=== PATIENT | female | born 1955 | race Caucasian/White ===

== ENCOUNTER → 2022-07-25 08:29 | Outpatient (BNVA) | payer BC, SELFPAY | PROVIDERS: Family Provider Family Medicine; PCP Family Medicine; Visit Provider Family Medicine | DX: Z00.00 Encounter for general adult medical examination without abnormal findings (principal) | CPT/HCPCS: 80053; 80061; 83036 ==

== ENCOUNTER 2023-02-23 21:08 | Emergency (ER) | payer BC, SELFPAY ==
[2023-02-23 21:43] VITALS: BP 115/75; PULSE 79; RESP 14; TEMP 37.6; O2SAT 96; BMI 24.2
--- NOTE | 2023-02-24 00:21 | XRR_ITS ---
PROCEDURE INFORMATION: Exam: XR Chest Exam date and time: 02/24/2023 12:36 AM Age: 67 years old Clinical indication: Patient HX: Fever. TECHNIQUE: Imaging protocol: Radiologic exam of the chest. Views: 1 view. COMPARISON: No relevant prior studies available. FINDINGS: Lungs: Unremarkable. No consolidation. Pleural spaces: Unremarkable. No pleural effusion. No pneumothorax. Heart/Mediastinum: Unremarkable. No cardiomegaly. Bones/joints: Unremarkable. XR/XR chest 1V portable [id number] IMPRESSION: No acute findings.
[2023-02-24] MEDS: ketorolac 30 mg/mL INJ 15 MG IVP (00:53)
[2023-02-24 00:54] LABS: Hematocrit 36.4 % (37.0-47.0); Hemoglobin 11.9 g/dL (11.5-15.3); Mean Corpuscular HGB Conc 32.7 g/dL (30.0-36.0); Mean Corpuscular Hemoglobin 30.1 pg (28.0-34.0); Mean Corpuscular Volume 91.9 fl (81-99); Mean Platelet Volume 11.4 fL (7.4-10.4); Platelet Count 81 10^3/cmm (130-400); Red Blood Count 3.96 10^6/uL (4.1-5.3); Red Cell Distribution Width 12.9 % (12.1-15.1); White Blood Count 1.3 10^3/uL (4.0-10.0)
[2023-02-24] MEDS: sodium chloride 0.9% 1,000 ML 999 ML IV (00:54)
[2023-02-24 01:08] VITALS: BP 114/63; RESP 16; O2SAT 97
[2023-02-24 01:12] LABS: Alanine Aminotransferase 18 U/L (0-33); Albumin Level 4.1 g/dL (3.5-5.2); Alkaline Phosphatase 35 U/L (35-105); Anion Gap 15.5 (5-19); Aspartate Amino Transferase 40 U/L (0-32); Blood Urea Nitrogen 15 mg/dL (8-23); Calcium 8.2 mg/dL (8.5-10.5); Carbon Dioxide 22 mmol/L (22-29); Chloride 96 mmol/L (98-107); Creatine Phosphokinase 234 U/L (26-192); Globulin 2.3 g/dL (1.3-4.6); Glomerular Filtration Rate 71.3 mL/min (90-130); Glucose 85 mg/dL (65-115); Osmolality Calculated 270 mOsm/kg (285-295); Potassium 3.5 mmol/L (3.5-5.1); Sodium 130 mmol/L (136-145); Total Bilirubin 0.2 mg/dL (0.15-1.2); Total Protein 6.4 g/dL (6.6-8.7)
--- NOTE | 2023-02-24 01:14 | ED_ITS ---
HPI - Fever General: Chief Complaint: Fever Stated Complaint: Joint Hurt\Fever\N\ Time Seen by Provider: 02/24/23 00:10 History of Present Illness: 67-year-old female who was diagnosed in the clinic a couple of days ago with likely tickborne illness empirically. She has had fevers, joint pains, body aches, and generalized malaise. She did have a history of tick bites previously. She has been on doxycycline for 3 days, and is still running fevers. She has similar symptoms. No vomiting. No cough. MD elicited complaint: fever, malaise and weakness (Generalized) Context: other Associated symptoms: Reports chills and headache(s); Deny abdominal pain, flank pain, chest pain, confusion, cough, diarrhea, dysuria, rhinorrhea or vomiting Review of Systems Const: Reports: fever(s), chills, body aches and malaise ENMT: Denies: throat pain Card: Denies: chest pain Resp: Denies: dyspnea, productive cough or non-productive cough GI: Denies: abdominal pain, vomiting or diarrhea : Denies: flank pain or dysuria Neuro: Reports: headache(s); Denies: confusion Physical Exam Const: COMMON NORMALS: no acute distress GENERAL APPEARANCE: cooperative; not ill appearing and not frail appearing HENMT: COMMON NORMALS: normocephalic, atraumatic and Normal external nose present HEAD & SCALP: normocephalic and atraumatic FACE & SINUS: normal facial exam and face symmetric NOSE: Normal external nose present Eye: COMMON NORMALS: Equal, round and reactive pupils present and EOMs intact bilaterally PUPIL: Yes Equal, round and reactive pupils present Neck/C-Spine: GENERAL: Yes trachea midline Chest: CHEST: Yes Symmetrical chest wall rise Resp: COMMON NORMALS: normal respiratory effort, No retractions, No use of accessory muscles and clear to auscultation bilaterally AUSCULTATION: clear to auscultation bilaterally Cardio: COMMON NORMALS: regular rate and regular rhythm RATE: regular rate RHYTHM: regular rhythm GI: COMMON NORMALS: Normal to inspection, nondistended, normoactive bowel sounds present Extremity: COMMON NORMALS: no pedal edema Neuro: ANT COMA SCALE: document GCS findings [place] coma scale eye opening: Spontaneous [place] coma scale verbal response: Orientated [place] coma scale motor response: Obey commands Ant coma scale total score: 15 SENSORY EXAM: Yes extremities (intact) Psych: COMMON NORMALS: speech normal SPEECH: Yes normal speech Skin: COMMON NORMALS: no rashes or lesions noted GENERAL SKIN EXAM: no rash es or lesions noted Course Vital Signs: Vital signs: Vital Signs Temperature 99.7 F H 02/24/23 03:19 Pulse Rate 67 02/24/23 03:19 Respiratory Rate 16 02/24/23 03:19 Blood Pressure 90/54 02/24/23 03:19 Pulse Oximetry 96 02/24/23 03:19 Oxygen Delivery Me thod Room Air 02/23/23 21:43 MDM - Fever Medical Decision Making Temperatures 100. She is receiving some IV fluid. Vitals are stable otherwise. CBC shows leukopenia of 1.3 with ANC of 0.7. Platelet count is 81. BMP is not terribly remarkable. Chest x-ray is negative. Mild elevation in AST with no other liver enzyme elevation. CRP is only 3. Urinalysis is negative for urinary tract infection. With a history of tick bites, leukopenia, thrombocytopenia, and mild liver enzyme elevation, this certainly sounds like a tickborne illness. She has been on doxycycline for 3 days she believes. By her history, there does appear to be some improvement. We are sending a tick panel, tularemia panel, and peripheral smear on the patient. We will continue doxycycline for 20 days total. She knows to return for worsening symptoms such as inability to control temperature, mental status changes, worsening pain, etc. She was offered pain medication but declined using Tylenol instead. She will see her PCP on Friday, in 2 days, for repeat blood work regarding leukopenia and thrombocytopenia to ensure they are not worsening. Lab Data 02/24/23 00:45 02/24/23 00:45 Radiology Impressions Chest X-Ray 02/24/23 00:21 IMPRESSION: No acute findings. Laboratory Results WBC 1.3 10^3/uL (4.0-10.0) L 02/24/23 00:45 RBC 3.96 10^6/uL (4.1-5.3) L 02/24/23 00:45 Hgb 11.9 g/dL (11.5-15.3) 02/24/23 00:45 Hct 36.4 % (37.0-47.0) L 02/24/23 00:45 MCV 91.9 fl (81-99) 02/24/23 00:45 MCH 30.1 pg (28.0-34.0) 02/24/23 00:45 MCHC 32.7 g/dL (30.0-36.0) 02/24/23 00:45 RDW 12.9 % (12.1-15.1) 02/24/23 00:45 Plt Count 81 10^3/cmm (130-400) L 02/24/23 00:45 MPV 11.4 fL (7.4-10.4) H 02/24/23 00:45 Lymph % (Auto) Not Reportable 02/24/23 00:45 [place] % (Auto) Not Reportable 02/24/23 00:45 Neut # (Auto) Summer Child Caregiver 02/24/23 00:45 Lymph # (Auto) Not Reportable 02/24/23 00:45 [place] # (Auto) Not Reportable 02/24/23 00:45 Total Counted 100 (0-100) 02/24/23 00:45 Atypical Lymphs % 3.0 % (0-5) 02/24/23 00:45 Absolute Neutrophils 0.7 10^3/cmm (1.4-6.5) L* 02/24/23 00:45 Segmented Neutrophils 54 % 02/24/23 00:45 Abs Segm Neuts (Man) 0.7 10/cmm (1.6-7.1) L 02/24/23 00:45 Band Neutrophils 0.0 % 02/24/23 00:45 Abs Band Neuts (Man) 0.0 10^3/cmm (0.0-1.2) 02/24/23 00:45 Absolute Lymphocytes 0.5 10^3/cmm (1.2-3.4) L 02/24/23 00:45 Lymphocytes (Manual) 37 % 02/24/23 00:45 Monocytes (Manual) 6.0 % 02/24/23 00:45 Absolute Monocytes 0.1 10^3/cmm (0.1-0.6) 02/24/23 00:45 Eosinophils (Manual) 0 % 02/24/23 00:45 Absolute Eosinophils 0.0 10^3/cmm (0.0-0.7) 02/24/23 00:45 Basophils (Manual) 0.0 % 02/24/23 00:45 Absolute Basophils 0.0 10^3/cmm (0.0-0.2) 02/24/23 00:45 Pathologist Review Yes 02/24/23 00:45 Toxic Granulation 1+ H 02/24/23 00:45 Platelet Estimate Decreased (Normal) L 02/24/23 00:45 Vicky Cells 1+ H 02/24/23 00:45 Peripher Smr Path Cons Sent for review 02/24/23 00:45 Sodium 130 mmol/L (136-145) L 02/24/23 00:45 Potassium 3.5 mmol/L (3.5-5.1) 02/24/23 00:45 Chloride 96 mmol/L (98-107) L 02/24/23 00:45 Carbon Dioxide 22 mmol/L (22-29) 02/24/23 00:45 Anion Gap 15.5 (5-19) 02/24/23 00:45 BUN 15 mg/dL (8-23) 02/24/23 00:45 Creatinine 0.8 mg/dL (0.5-0.9) 02/24/23 00:45 GFR Calculation 71.3 mL/min (90-130) L 02/24/23 00:45 Glucose 85 mg/dL (65-115) 02/24/23 00:45 Calculated Osmolality 270 mOsm/kg (285-295) L 02/24/23 00:45 Calcium 8.2 mg/dL (8.5-10.5) L 02/24/23 00:45 Total Bilirubin 0.2 mg/dL (0.15-1.2) 02/24/23 00:45 AST 40 U/L (0-32) H 02/24/23 00:45 ALT 18 U/L (0-33) 02/24/23 00:45 Alkaline Phosphatase 35 U/L (35-105) 02/24/23 00:45 Creatine Kinase 234 U/L (26-192) H 02/24/23 00:45 C-Reactive Protein 3.0 mg/L (0.0-4.9) 02/24/23 00:45 Total Protein 6.4 g/dL (6.6-8.7) L 02/24/23 00:45 Albumin 4.1 g/dL (3.5-5.2) 02/24/23 00:45 Globulin 2.3 g/dL (1.3-4.6) 02/24/23 00:45 Urine Color Yellow (Yellow) 02/24/23 01:05 Urine Appearance Hazy (CLEAR) A 02/24/23 01:05 Urine pH 5 (5-7) 02/24/23 01:05 Ur Specific [place] 1.005 (1.005-1.030) 02/24/23 01:05 Urine Protein 1+ (Negative) H 02/24/23 01:05 Urine Glucose (UA) Norm (Normal) 02/24/23 01:05 Urine Ketones Negative (Negative) 02/24/23 01:05 Urine Blood Neg (Negative) 02/24/23 01:05 Urine Nitrate Negative (Negative) 02/24/23 01:05 Urine Bilirubin Neg (Negative) 02/24/23 01:05 Urine Urobilinogen Norm mg/dL (Negative) 02/24/23 01:05 Ur Leukocyte Esterase Negative (Negative) 02/24/23 01:05 Urine RBC 0-4 /hpf (0-2) H 02/24/23 01:05 Urine WBC 0-4 /hpf (0-5) H 02/24/23 01:05 Ur Squamous Epith Cells 0-4 /hpf (0-5) H 02/24/23 01:05 Amorphous Sediment Not Reportable 02/24/23 01:05 Urine Bacteria 2+ /hpf (NONE) H 02/24/23 01:05 Discharge Plan Discharge Patient Disposition: Home Clinical Impression: Fever of unknown origin, Tick borne fever, Thrombocytopenia, Febrile leukopenia Condition: Stable Prescriptions: Continued doxycycline hyclate 100 mg tablet 100 mg PO BID 10 Days Qty: 20 0RF No Action fluticasone propionate 50 mcg/actuation spray,suspension 2 spray intranasal DAILY Qty: 16 11RF Rx Instructions: administer 1-2 sprays into each nostril Discharge Orders: Discharge ED (Routine); Ordered 02/24/23 Ordered By: Imtiaz Alberts Referrals: Stiven Dhillon DO [Primary Care Provider] - 1-3 days Patient Instructions: Tick Bite (ED), Fever in Adults (ED), Thrombocytopenia (ED), Pain Management Activity Restrictions/Additional Instructions: Monitor temperatures 3 times daily. Take Tylenol at appropriate doses for temperature, aches, and pains. Push oral fluid intake. Continue doxycycline as ordered. Blood work has been sent. You need to have your blood count repeated on Friday. Follow-up with your doctor's clinic for this. Return for altered mental status, vomiting liquids or medications, inability to control temperature, any other concerning symptoms. Coding Level of Care Code ED Nursing Staffing Coordinator for Will Patel
[2023-02-24 01:23] LABS: Absolute Segmented Neutrophil 0.7 10/cmm (1.6-7.1); Lymphocytes 37 %; Monocytes Absolute 0.1 10^3/cmm (0.1-0.6); Total Cells Counted 100 (0-100)
[2023-02-24 01:24] LABS: Eosinophils 0 %; Lymphocytes Absolute 0.5 10^3/cmm (1.2-3.4); Platelet Estimate Decreased (Normal); Segmented Neutrophils 54 %
[2023-02-24 01:25] LABS: Pathology Refferal Yes
[2023-02-24 01:27] LABS: Absolute Neutrophil 0.7 10^3/cmm (1.4-6.5)
[2023-02-24 01:28] LABS: Burr Cells 1+; Toxic Granulation 1+
[2023-02-24 01:33] LABS: Add Urine Microscopic? YES; Bilirubin Urine Neg (Negative); Blood Urine Neg (Negative); Glucose Urine UA Norm (Normal); Ketones Urine Negative (Negative); Leukocyte Esterase Urine Negative (Negative); Nitrate Urine Negative (Negative); Protein Urine 1+ (Negative); Specific Gravity, Urine 1.005 (1.005-1.030); Urine Appearance Hazy (CLEAR); Urine Color Yellow (Yellow); Urobilinogen Urine Norm (Negative); pH Urine 5 (5-7)
[2023-02-24 01:34] LABS: Bacteria Urine 2+ /hpf; RBC Urine 0-4 /hpf (0-2); Squamous Epithelial Cell Urine 0-4 /hpf (0-5); WBC Urine 0-4 /hpf (0-5)
[2023-02-24 02:13] VITALS: BP 99/57; RESP 16; O2SAT 93
[2023-02-24 02:36] VITALS: BP 90/54; PULSE 67; RESP 16; O2SAT 96
[2023-02-24 02:38] LABS: LAB Peripheral Smear Sent for Review
[2023-02-24 03:19] VITALS: BP 90/54; PULSE 67; RESP 16; TEMP 37.6; O2SAT 96
[2023-02-25 14:45] LABS: Lyme AB Screen <0.90 index
[2023-03-03 23:25] LABS: Francisella Tularensis DA <1:20 titer
[2023-03-04 16:59] LABS: RMSF IGG NOT DETECTED; RMSF IGM NOT DETECTED
[2023-03-04 21:53] LABS: E. Chaffeensis AB IGG <1:64; E. Chaffeensis AB IGM <1:20
== END 2023-02-24 03:20 | disposition home or self-care (01) ==
PROVIDERS: Emergency Provider Emergency Medicine; PCP Family Medicine
DX: A93.8 Other specified arthropod-borne viral fevers (principal); D69.6 Thrombocytopenia, unspecified; D72.819 Decreased white blood cell count, unspecified
CPT/HCPCS: 36415; 71045; 80053; 80503; 81001; 82550; 85007; 85025; 86000; 86140; 86618; 86666; 86757; 87040; 96361; 96374; 99284; J1885; J7030

== ENCOUNTER 2023-02-26 14:50 | Outpatient (CLI) | payer BC, SELFPAY ==
[2023-02-26 15:25] LABS: Hematocrit 31.5 % (37.0-47.0); Hemoglobin 10.6 g/dL (11.5-15.3); Mean Corpuscular HGB Conc 33.7 g/dL (30.0-36.0); Mean Corpuscular Hemoglobin 30.5 pg (28.0-34.0); Mean Corpuscular Volume 90.8 fl (81-99); Mean Platelet Volume 10.7 fL (7.4-10.4); Platelet Count 97 10^3/cmm (130-400); Red Blood Count 3.47 10^6/uL (4.1-5.3); Red Cell Distribution Width 13.6 % (12.1-15.1); White Blood Count 3.2 10^3/uL (4.0-10.0)
[2023-02-26 15:58] LABS: Alanine Aminotransferase 22 U/L (0-33); Albumin Level 3.8 g/dL (3.5-5.2); Alkaline Phosphatase 43 U/L (35-105); Anion Gap 13.6 (5-19); Aspartate Amino Transferase 46 U/L (0-32); Blood Urea Nitrogen 11 mg/dL (8-23); Calcium 8.3 mg/dL (8.5-10.5); Carbon Dioxide 22 mmol/L (22-29); Chloride 107 mmol/L (98-107); Globulin 2.2 g/dL (1.3-4.6); Glomerular Filtration Rate 99.4 mL/min (90-130); Glucose 83 mg/dL (65-115); Osmolality Calculated 287 mOsm/kg (285-295); Potassium 3.6 mmol/L (3.5-5.1); Sodium 139 mmol/L (136-145); Total Bilirubin 0.2 mg/dL (0.15-1.2)
[2023-02-26 16:36] LABS: Total Cells Counted 100 (0-100)
[2023-02-26 16:37] LABS: Absolute Segmented Neutrophil 0.9 10/cmm (1.6-7.1); Band Neutrophils Absolute 0.2 10^3/cmm (0.0-1.2); Lymphocytes 51 %; Segmented Neutrophils 27 %
[2023-02-26 16:38] LABS: Absolute Neutrophil 1.1 10^3/cmm (1.4-6.5); Eosinophils 1 %; Lymphocytes Absolute 2.1 10^3/cmm (1.2-3.4); Platelet Estimate Decreased (Normal)
== END 2023-02-26 14:51 | disposition home or self-care (01) ==
PROVIDERS: PCP Family Medicine; Visit Provider Family Medicine
DX: R50.9 Fever, unspecified (principal); D69.6 Thrombocytopenia, unspecified; D72.819 Decreased white blood cell count, unspecified; R50.81 Fever presenting with conditions classified elsewhere
CPT/HCPCS: 80053; 85007; 85025

== ENCOUNTER → 2023-11-07 09:33 | Outpatient (BNVA) | payer BC, SELFPAY | PROVIDERS: PCP Family Medicine; Visit Provider Family Medicine | DX: Z00.00 Encounter for general adult medical examination without abnormal findings (principal) | CPT/HCPCS: 80053; 80061; 83036; 85025 ==

== ENCOUNTER → 2024-12-10 07:50 | Outpatient (BNVA) | payer BC, SELFPAY | PROVIDERS: PCP Family Medicine; Visit Provider Family Medicine | DX: Z00.00 Encounter for general adult medical examination without abnormal findings (principal) | CPT/HCPCS: 80053; 85025 ==